=== PATIENT | female | born 1950 | race Two or more races ===

== ENCOUNTER 2023-06-03 07:28 | Observation (INO) | payer OTHER ==
[~2023-06-03] VITALS: Ht 157.5 cm; Wt 75.5 kg
[2023-06-03] VITALS (15 sets, daily range): BP systolic 102–171; BP diastolic 62–101; PULSE 72–109; RESP 12–20; TEMP 96.9–98.9; O2SAT 86–97
[~2023-06-03 07:28] MED LIST: BACL20TA PO; CALC1TAB92 PO; CEL100T PO; COEN100C15 PO; ESTR1TAB5 PO; ESTR2TAB5 PO; GABA-1250 PO; GLUC1CAP12 PO; LEFL20TA PO; OMEP-434 PO; SIMV20TA20 PO
[2023-06-03] MEDS ORDERED: TRANEXAMIC ACID 20 ML ONE (07:53)
[2023-06-03] MEDS ORDERED: BUPIVACAINE 0.25% INJ 50ML VIAL ONE (07:53)
[2023-06-03] MEDS ORDERED: VANCOMYCIN HCL 1000 MG VL ONE (07:54)
[2023-06-03] MEDS ORDERED: TETRACAINE 1% INJ 2 ML VIAL IJ ONE (08:06)
[2023-06-03] MEDS ORDERED: fentaNYL CITRATE 100 MCG/2 ML VL ONE (08:07)
[2023-06-03] MEDS ORDERED: MORPHINE SULF PF 5 MG/10 ML VIAL ONE ×2 (08:07→08:12)
[2023-06-03] MEDS ORDERED: MIDAZOLAM HCL 2MG/2ML 2ml VIAL (1mg/ml) ONE (08:08)
[2023-06-03] MEDS ORDERED: ONDANSETRON HCL 4 MG/2 ML VIAL IV ONE (08:10)
[2023-06-03] MEDS ORDERED: DexAMETHasone SOD PHOS 10MG/1ML VIAL INJ IV ONE (08:10)
[2023-06-03] MEDS ORDERED: ceFAZolin 1GM/50ML 100 ML IV ONE (08:10)
[2023-06-03] MEDS ORDERED: KETOROLAC TROMETH 30 MG/ML 1ML VIAL ONE (08:12)
[2023-06-03] MEDS ORDERED: PREGABALIN CAPSULE 75 MG CAP PO ONE (08:15)
[2023-06-03] MEDS ORDERED: ACETAMINOPHEN IV 1000 MG/100ML (10MG/ML) IV ONE (08:15)
[2023-06-03] MEDS ORDERED: CELECOXIB 100 MG CAP PO ONE (08:15)
[2023-06-03] MEDS ORDERED: MORPHINE SULFATE 4 MG/ML SYR/VIAL IV PRN (10:00)
[2023-06-03] MEDS ORDERED: HYDROmorphone HCL 2 MG/ML VL/or syr IV PRN ×3 (10:00→14:00)
[2023-06-03] MEDS ORDERED: ONDANSETRON HCL 4 MG/2 ML VIAL IV PRN ×2 (10:00→11:30)
[2023-06-03] MEDS ORDERED: LABETALOL HCL 5 MG/ML 4ML SYRINGE IV PRN (10:00)
[2023-06-03] MEDS ORDERED: MIDAZOLAM HCL 2MG/2ML 2ml VIAL (1mg/ml) IV PRN (10:00)
[2023-06-03] MEDS ORDERED: NALOXONE HCL 0.4 MG/ML VIAL IV PRN (10:00)
[2023-06-03] MEDS ORDERED: DexAMETHasone SOD PHOS 10MG/1ML VIAL INJ IV PRN (10:00)
[2023-06-03] MEDS ORDERED: ePHEDrine SULFATE 50 MG/ML AMP IV PRN (10:00)
[2023-06-03] MEDS ORDERED: MORPHINE SULFATE INJ 2 MG/ml SYRG IV PRN (11:30)
[2023-06-03] MEDS ORDERED: NITROGLYCERIN 0.4 MG SL TAB SL PRN (11:30)
[2023-06-03] MEDS ORDERED: ACETAMINOPHEN 325 MG TAB PO PRN (11:30)
[2023-06-03] MEDS: LACTATED RINGER'S 1,000 ML IV SCH (12:00)
[2023-06-03] MEDS: ceFAZolin 1GM/50ML 50 ML IV SCH ×2 (12:22→17:27)
[2023-06-03] MEDS: SODIUM CHLOR 0.9% PF (SALINE LOCK) 10ML VIAL/SYR IV SCH ×2 (14:25→22:00)
[2023-06-03] MEDS ORDERED: hydrALAZINE HCL 20 MG/ML VL IV PRN (17:30)
[2023-06-03] MEDS: DOCUSATE SOD 100 MG CAP PO SCH (21:50)
[2023-06-03] MEDS: BACLOFEN 10 MG TAB PO SCH (21:50)
[2023-06-03] MEDS: CELECOXIB 100 MG CAP PO SCH (21:50)
[2023-06-04] VITALS (13 sets, daily range): BP systolic 114–148; BP diastolic 65–98; PULSE 74–105; RESP 16–18; TEMP 97.6–97.9; O2SAT 89–96
[2023-06-04] MEDS: ceFAZolin 1GM/50ML 50 ML IV SCH (01:34)
[2023-06-04] MEDS: GABAPENTIN 300 MG CAP PO SCH ×3 (01:34→21:36)
[2023-06-04] MEDS: LACTATED RINGER'S 1,000 ML IV SCH ×2 (04:59→07:30)
[2023-06-04] MEDS: OXYCODONE W/ ACETAMINOPHEN 5/325MG TABLET PO PRN ×3 (04:59→17:33)
[2023-06-04] MEDS: SODIUM CHLOR 0.9% PF (SALINE LOCK) 10ML VIAL/SYR IV SCH ×3 (06:06→21:39)
[2023-06-04 07:10] LABS: Basophils # (auto) 0 10 ^3/uL (0-0.2); Basophils % (auto) 0.1 % (0.0-2.0); Eosinophils # (auto) 0 10 ^3/uL (0-0.8); Hematocrit 36.2 % (36.0-46.0); Hemoglobin 11.9 g/dL (12.2-16.2); Lymphocytes # (auto) 0.7 10 ^3/uL (0.4-5.4); Mean Corpuscular Hemoglobin 30.6 pg (28.0-32.0); Mean Corpuscular Hgb Conc. 32.8 g/dL (32.0-36.0); Mean Corpuscular Volume 93.2 fL (80.0-100.0); Monocytes # (auto) 0.8 10 ^3/uL (0-1.3); Monocytes % (auto) 8.8 % (0.0-12.0); Neutrophils # (auto) 7.8 10 ^3/uL (1.6-8.6); Neutrophils % (auto) 83.1 % (37.0-80.0); Nucleated Red Blood Cells % 0.1 %; Red Blood Cells 3.88 10^6/uL (4.0-5.20); Red Cell Distribution Width 14.6 % (11.8-14.3); White Blood Cell 9.4 10^3/uL (4.4-10.8)
[2023-06-04 08:00] LABS: Calcium 8.4 mg/dL (8.7-10.4); Potassium 3.5 mmol/L (3.5-5.1)
[2023-06-04 08:02] LABS: BUN/Creatinine Ratio 21.9 (10.0-20.0)
[2023-06-04] MEDS: PANTOPRAZOLE 40 MG TAB PO SCH (09:29)
[2023-06-04] MEDS: DOCUSATE SOD 100 MG CAP PO SCH ×2 (09:30→21:37)
[2023-06-04] MEDS: CELECOXIB 100 MG CAP PO SCH ×2 (09:30→21:37)
[2023-06-04] MEDS: ATORVASTATIN 20 MG TAB PO SCH (09:30)
[2023-06-04] MEDS: ENOXAPARIN SOD 40 MG/0.4 ML SYRINGE SC SCH (09:31)
[2023-06-04] MEDS: COENZYME Q10 100 MG PO SCH (09:31)
[2023-06-04] MEDS: ESTRADIOL 1 MG TAB PO SCH (12:07)
[2023-06-04] MEDS: BACLOFEN 10 MG TAB PO SCH (21:37)
[2023-06-05] MEDS: OXYCODONE W/ ACETAMINOPHEN 5/325MG TABLET PO PRN ×3 (00:19→10:31)
[2023-06-05 05:00] VITALS: BP 151/88; PULSE 89; RESP 18; TEMP 97.7; O2SAT 98
[2023-06-05] MEDS: SODIUM CHLOR 0.9% PF (SALINE LOCK) 10ML VIAL/SYR IV SCH (05:49)
[2023-06-05 08:00] VITALS: BP 171/101; PULSE 99; RESP 20; TEMP 36.5; O2SAT 90
[2023-06-05 09:11] VITALS: BP 144/87; PULSE 99; RESP 20; TEMP 98.3; O2SAT 92
[2023-06-05] MEDS: COENZYME Q10 100 MG PO SCH (10:00)
[2023-06-05] MEDS: ESTRADIOL 1 MG TAB PO SCH (10:00)
[2023-06-05] MEDS: GABAPENTIN 300 MG CAP PO SCH (10:30)
[2023-06-05] MEDS: ENOXAPARIN SOD 40 MG/0.4 ML SYRINGE SC SCH (10:30)
[2023-06-05] MEDS: ATORVASTATIN 20 MG TAB PO SCH (10:31)
[2023-06-05] MEDS: CELECOXIB 100 MG CAP PO SCH (10:32)
[2023-06-05] MEDS: DOCUSATE SOD 100 MG CAP PO SCH (10:32)
[2023-06-05] MEDS: PANTOPRAZOLE 40 MG TAB PO SCH (10:32)
== END 2023-06-05 13:32 | disposition home or self-care (01) ==
LOC: SUR 07:28 → OVERFLOW 15:10 → WEST WING 15:33
PROVIDERS: ADMIT Orthopaedic Surgery Adult Reconstructive Orthopaedic Surgery; ATTEND Internal Medicine
DX: M17.12 Unilateral primary osteoarthritis, left knee (principal); M06.9 Rheumatoid arthritis, unspecified; G62.9 Polyneuropathy, unspecified; E78.5 Hyperlipidemia, unspecified; I10 Essential (primary) hypertension; K21.9 Gastro-esophageal reflux disease without esophagitis; Z90.710 Acquired absence of both cervix and uterus; Z96.652 Presence of left artificial knee joint; Z79.899 Other long term (current) drug therapy
CPT/HCPCS: 20985; 27447; 36415; 73562; 80048; 85025; 86850; 86900; 86901; 93005; 96365; 96366; 96372; 96375; 97110; 97116; 97163; 97530; C1776; G0378; J0360; J0690; J1100; J1650; J1885; J2250; J2270; J2405; J3010; J3370; J3490